=== PATIENT | male | born 1945 | race Caucasian/White ===

== ENCOUNTER → 2016-03-15 13:26 | Outpatient (CLI) | payer MEDICARE | END | disposition home or self-care (01) | LOC: D.CT 13:26 | DX: M54.6 Pain in thoracic spine (principal) ==

== ENCOUNTER → 2016-04-27 12:57 | Outpatient (CLI) | payer MEDICARE | END | disposition home or self-care (01) | LOC: D.CT 12:57 | DX: M54.6 Pain in thoracic spine (principal) ==

== ENCOUNTER → 2018-08-31 09:24 | Outpatient (CLI) | payer MEDICARE ==
--- NOTE | 2018-08-31 10:37 | NUR ---
8 BOTTLES GASTROGRAFFIN 8 BOTTLE WATER
== END | disposition home or self-care (01) ==
LOC: D.RAD 09:24
PROVIDERS: ATTEND Nurse Practitioner
DX: K59.09 Other constipation (principal)